=== PATIENT | male | born 1945 | race Caucasian/White ===

== ENCOUNTER 2018-12-11 07:10 | Day surgery (SDC) | payer OTHER, BC ==
[2018-12-10 13:38] VITALS: BMI 29.0
[2018-12-11 08:37] VITALS: TEMP 98.3
[2018-12-11 09:56] VITALS: BP 120/60; PULSE 63
--- NOTE | 2018-12-14 17:50 | PATH ---
Surgical Pathology Report Patient Name: RUBEN GUZMAN [facility]. Rec. #: [id number] /Age/Gender: 1945 (Age: 73) / M Account: [id number] Location: U-ENDOSCOPY Taken: 12/11/2018 Received: 12/11/2018 Reported: 12/14/2018 Physicians: Sara Shrestha M.D. Specimen(s) Received A: DESCENDING COLON POLYP B: DISTAL TRANSVERSE POLYP Clinical History Adenoma surveillance Postoperative diagnosis: Colon polyps, diverticulosis Final Diagnosis A. DESCENDING COLON, POLYP, POLYPECTOMY: TUBULAR ADENOMA. B. DISTAL TRANSVERSE COLON, POLYPECTOMY: TUBULAR ADENOMA. Electronically Signed Allie Smith M.D. Gross Description A. Received in formalin, labeled "polyp descending colon" are 2 freeman, irregular portions of soft tissue measuring 0.3 and 0.4 cm. in greatest dimension. The specimens are submitted in toto in one cassette. B. Received in formalin, labeled "polyp distal transverse colon" is a freeman, irregular portion of soft tissue measuring 0.2 cm. in greatest dimension. The specimen is submitted in toto in one cassette. DL/12/11/2018 saudi/12/11/2018
== END 2018-12-11 09:35 | disposition home or self-care (01) ==
LOC: JASU-ENDO 07:10
PROVIDERS: ATTEND Internal Medicine Gastroenterology
PROC: 0DBL8ZX Excision of Transverse Colon, Via Natural or Artificial Opening Endoscopic, Diagnostic (ICD-10-PCS; 2018-12-11)
PROC: 0DBM8ZX Excision of Descending Colon, Via Natural or Artificial Opening Endoscopic, Diagnostic (ICD-10-PCS; principal; 2018-12-11 08:00)
DX: Z12.11 Encounter for screening for malignant neoplasm of colon (principal); Z86.010 Personal history of colon polyps; D12.4 Benign neoplasm of descending colon; D12.3 Benign neoplasm of transverse colon; K57.30 Diverticulosis of large intestine without perforation or abscess without bleeding; K64.8 Other hemorrhoids
CPT/HCPCS: 88305-TC

== ENCOUNTER 2020-09-20 04:31 | Day surgery (SDC) | payer OTHER, BC ==
[2020-09-19 14:13] VITALS: BMI 28.5
[2020-09-20 08:31] VITALS: TEMP 97.1
[2020-09-20 09:29] VITALS: BP 131/59; PULSE 60
== END 2020-09-20 09:26 | disposition home or self-care (01) ==
LOC: JASU-ENDO 04:31
PROVIDERS: ATTEND Internal Medicine Gastroenterology
PROC: 0DB68ZX Excision of Stomach, Via Natural or Artificial Opening Endoscopic, Diagnostic (ICD-10-PCS; 2020-09-20)
PROC: 0DB38ZX Excision of Lower Esophagus, Via Natural or Artificial Opening Endoscopic, Diagnostic (ICD-10-PCS; 2020-09-20)
PROC: 0DB98ZX Excision of Duodenum, Via Natural or Artificial Opening Endoscopic, Diagnostic (ICD-10-PCS; principal; 2020-09-20 09:00)
DX: K25.9 Gastric ulcer, unspecified as acute or chronic, without hemorrhage or perforation (principal); K29.50 Unspecified chronic gastritis without bleeding; K29.80 Duodenitis without bleeding; E11.9 Type 2 diabetes mellitus without complications; I10 Essential (primary) hypertension
CPT/HCPCS: 88305-TC; 88342-TC

== ENCOUNTER 2023-05-30 04:10 | Day surgery (SDC) | payer OTHER, BC ==
[2023-05-28 12:13] VITALS: BMI 27.6
[2023-05-30] MEDS ORDERED: LIDOCAINE HCL/PF 1% SDV 5ML VIAL ONE (07:09)
[2023-05-30] MEDS ORDERED: BUPIVACAINE HCL/PF 0.5% (5MG/ML) 10 ML VIAL ONE (07:09)
[2023-05-30 08:27] VITALS: RESP 18
[2023-05-30] MEDS: BUPIVACAINE HCL/PF 0.5% (5MG/ML) 10 ML VIAL IJ ONE ×3 (09:37→09:44)
[2023-05-30 11:30] VITALS: BP 137/74; PULSE 58; TEMP 97.9
[2023-05-30] MEDS ORDERED: ACETAMINOPHEN 500 MG TABLET (FP) PO PRN (13:08)
== END 2023-05-30 10:35 | disposition home or self-care (01) ==
LOC: JASU-SURG 04:10
PROVIDERS: ATTEND Pain Medicine Pain Medicine
PROC: 3E0T33Z Introduction of Anti-inflammatory into Peripheral Nerves and Plexi, Percutaneous Approach (ICD-10-PCS; 2023-05-30)
PROC: 3E0T3BZ Introduction of Anesthetic Agent into Peripheral Nerves and Plexi, Percutaneous Approach (ICD-10-PCS; principal; 2023-05-30 09:45)
DX: M47.812 Spondylosis without myelopathy or radiculopathy, cervical region (principal)
CPT/HCPCS: 76000-TC-FY

== ENCOUNTER 2023-06-27 04:00 | Day surgery (SDC) | payer OTHER, BC ==
[2023-06-25 16:21] VITALS: BMI 27.6
[2023-06-27] MEDS ORDERED: BUPIVACAINE HCL/PF 0.5% (5MG/ML) 10 ML VIAL ONE (07:27)
[2023-06-27] MEDS ORDERED: LIDOCAINE HCL/PF 1% SDV 5ML VIAL ONE (07:27)
[2023-06-27] MEDS: BUPIVACAINE HCL/PF 0.5% (5MG/ML) 10 ML VIAL IJ ONE ×2 (14:33)
[2023-06-27] MEDS ORDERED: ACETAMINOPHEN 500 MG TABLET (FP) PO PRN (14:54)
[2023-06-27 14:57] VITALS: RESP 20
[2023-06-27 15:30] VITALS: BP 130/60; PULSE 68; TEMP 98
== END 2023-06-27 15:30 | disposition home or self-care (01) ==
LOC: JASU-SURG 04:00
PROVIDERS: ATTEND Pain Medicine Pain Medicine
PROC: 3E0T3BZ Introduction of Anesthetic Agent into Peripheral Nerves and Plexi, Percutaneous Approach (ICD-10-PCS; principal; 2023-06-27 16:15)
DX: M47.812 Spondylosis without myelopathy or radiculopathy, cervical region (principal)
CPT/HCPCS: 76000-TC-FY

== ENCOUNTER 2023-07-31 03:59 | Day surgery (SDC) | payer OTHER, BC ==
[2023-07-25 13:39] VITALS: BMI 27.6
[2023-07-31] MEDS ORDERED: BUPIVACAINE HCL/PF 0.5% (5MG/ML) 10 ML VIAL ONE (07:25)
[2023-07-31] MEDS ORDERED: LIDOCAINE HCL/PF 1% SDV 5ML VIAL ONE (07:25)
[2023-07-31] MEDS ORDERED: LIDOCAINE HCL/PF 2% SDV 5ML VIAL ONE (07:25)
[2023-07-31] MEDS ORDERED: DEXAMETHASONE SOD PHOSPHATE 10 MG/1 ML VIAL ONE (07:26)
[2023-07-31 10:23] VITALS: RESP 18
[2023-07-31 12:13] VITALS: TEMP 97.8
[2023-07-31 14:29] VITALS: BP 139/72; PULSE 69
[2023-07-31] MEDS ORDERED: ACETAMINOPHEN 500 MG TABLET (FP) PO PRN (15:39)
== END 2023-07-31 12:30 | disposition home or self-care (01) ==
LOC: JASU-SURG 03:59
PROVIDERS: ATTEND Pain Medicine Pain Medicine
PROC: 01513ZZ Destruction of Cervical Nerve, Percutaneous Approach (ICD-10-PCS; principal; 2023-07-31 11:45)
DX: M47.812 Spondylosis without myelopathy or radiculopathy, cervical region (principal)
CPT/HCPCS: 76000-TC-FY; J1100

== ENCOUNTER 2023-11-28 04:12 | Day surgery (SDC) | payer OTHER, BC ==
[2023-11-26 10:54] VITALS: BMI 28.7
[2023-11-28 10:10] VITALS: TEMP 98.5
[2023-11-28 10:51] VITALS: BP 114/40; PULSE 53; RESP 16
== END 2023-11-28 11:04 | disposition home or self-care (01) ==
LOC: JASU-ENDO 04:12
PROVIDERS: ATTEND Internal Medicine Gastroenterology
PROC: 0DBL8ZX Excision of Transverse Colon, Via Natural or Artificial Opening Endoscopic, Diagnostic (ICD-10-PCS; 2023-11-28)
PROC: 0DB98ZX Excision of Duodenum, Via Natural or Artificial Opening Endoscopic, Diagnostic (ICD-10-PCS; 2023-11-28)
PROC: 0DB78ZX Excision of Stomach, Pylorus, Via Natural or Artificial Opening Endoscopic, Diagnostic (ICD-10-PCS; 2023-11-28)
PROC: 0DB68ZX Excision of Stomach, Via Natural or Artificial Opening Endoscopic, Diagnostic (ICD-10-PCS; 2023-11-28)
PROC: 0DBP8ZX Excision of Rectum, Via Natural or Artificial Opening Endoscopic, Diagnostic (ICD-10-PCS; principal; 2023-11-28 10:00)
DX: Z12.11 Encounter for screening for malignant neoplasm of colon (principal); D12.3 Benign neoplasm of transverse colon; D12.8 Benign neoplasm of rectum; K57.30 Diverticulosis of large intestine without perforation or abscess without bleeding; K29.80 Duodenitis without bleeding; K29.50 Unspecified chronic gastritis without bleeding; Z86.0100 Personal history of colon polyps, unspecified
CPT/HCPCS: 82962; 88305-TC; 88342-TC